=== PATIENT | male | born 1950 | race Caucasian/White ===

== ENCOUNTER 2021-07-30 11:05 | Inpatient (IN) | payer OTHER ==
[~2021-07-30] VITALS: Ht 180.3 cm; Wt 120.3 kg
[~2021-07-30 11:05] MED LIST: ALBU.083IS IH; ALPR1 PO; ASPI325 PO; AZIT250 PO; CLOP75 PO; ESOM20 PO; INS70/30I SC; PROCODE120 PO; SIMV10 PO; SITA50T2 PO; TELM20 PO; VICTOSA
[2021-07-30 11:55] LABS: BASOPHILS ABSOLUTE AUTO 0.05 K/mm3 (0.00-0.23); BASOPHILS PERCENT AUTO 0 % (0-2); EOSINOPHILS ABSOLUTE AUTO 0.01 K/mm3 (0.00-0.68); EOSINOPHILS PERCENT AUTO 0 % (0-6); Hematocrit 35.8 % (37.0-53.0); Hemoglobin 11.7 g/dL (13.5-17.5); IMMATURE GRAN ABSOLUTE AUTO 0.35 K/mm3 (0.00-0.10); IMMATURE GRAN PERCENT AUTO 2 % (0-1); LYMPHOCYTES ABSOLUTE AUTO 0.97 K/mm3 (0.84-5.20); LYMPHOCYTES PERCENT AUTO 5 % (21-46); MONOCYTES ABSOLUTE AUTO 0.94 K/mm3 (0.16-1.47); MONOCYTES PERCENT AUTO 5 % (4-13); Mean Corpuscular HGB 30.1 pg (26.0-34.0); Mean Corpuscular HGB Conc 32.7 g/dL (31.5-36.5); Mean Corpuscular Volume 92 fL (80-100); Mean Platelet Volume 9.5 fL (9.1-12.4); NEUTROPHILS ABSOLUTE AUTO 16.19 K/mm3 (1.96-9.15); NEUTROPHILS PERCENT AUTO 87 % (41-73); Platelet Count 426 K/mm3 (150-400); RDW Standard Deviation 47.4 fL (35.1-46.3); Red Blood Cell Count 3.89 M/mm3 (4.30-5.90); White Blood Cell Count 18.51 K/mm3 (4.00-11.30)
[2021-07-30 12:07] LABS: Alanine Aminotransfer (ALT/SGP 14 U/L (12-78); Albumin, Blood 1.5 g/dL (3.4-5.0); Albumin/Globulin Ratio 0.2 (0.8-1.8); Alk Phos 119 U/L (50-136); Anion Gap 8 mmol/L (6-16); Aspartate Aminotrans (AST/SGOT 26 U/L (12-37); Bilirubin, Total 0.9 mg/dL (0.1-1.0); Blood Urea Nitrogen 14 mg/dL (8-24); Bun/Creatinine Ratio 27.8 (12.0-20.0); CO2, Blood 29 mmol/L (21-32); Calcium, Blood 8.9 mg/dL (8.5-10.1); Chloride, Blood 92 mmol/L (98-108); Globulin, Blood 6.1 g/dL (2.2-4.0); Glomerular Filtration Rate >60 (60-); Glucose, Blood 66 mg/dL (70-99); Potassium, Blood 3.6 mmol/L (3.5-5.5); Sodium, Blood 129 mmol/L (136-145); Total Protein, Blood 7.6 g/dL (6.4-8.2)
[2021-07-30 15:16] LABS: Influenza A, PCR NEGATIVE (NEGATIVE); Influenza B, PCR NEGATIVE (NEGATIVE); Resp Syncytial Virus, PCR NEGATIVE (NEGATIVE); SARS-Cov-2 (COVID-19) PCR, MMC NEGATIVE (NEGATIVE)
--- NOTE | 2021-07-30 18:07 | NUR ---
PT WAS BROUGHT INTO THE OPERATING ROOM AND TRANSFERED OVER TO THE OR TABLE. HOOKED UP TO MONITORS, INDUCED AND INTUBATED BY DR. BOTELLO. SHORTLY AFTER PT BECAME BRADYCARDIC AND CYANOTIC, WITH NO PULSE. CHEST COMPRESSION WERE PERFORMED FOR ABOUT 2 MIN AND PT REGAINED STABLE HEART RATE, PRESSURE, AND OXYGENATION, WITH MEDICATION AND CPR. SURGERY WAS STARTED TO REMOVE INFECTED LIMB. REPORT GIVEN TO NURSING CHIEF LEARNING OFFICER AND ICU CHARGE NURSE.
--- NOTE | 2021-07-30 19:06 | NUR ---
PT ARRIVAL PT BROUGHT FROM OR BY DR BOTELLO AND POINT OF SALE ASSOCIATE. PT REMAINS INTUBATED WITH VENT SETTINGS 14/550/5/40%. STAFF REPORTS BEFORE OPERATION PT'S HR DROPPED AND NO PULSE WAS PRESENT, CPR WAS INITIATED FOR APPROX 3MIN BEFORE PULSE WAS REGAINED. LEVOPHED WAS ORDERED BUT NOT STARTED DUE TO BP RISING. UPON ARRIVAL PT'S SBP 120S, THEN DROPPED SBP IN 60S. LEVOPHED STARTED AT 10MCG/MIN. DR VASQUEZ AT BEDSIDE, PLACED KERLIX ON R FOOT WOUND. PHOTO TAKEN AND PLACED IN CHART. SPOUSE, SISTER IN LAW, AND SON AT BEDSIDE. UPDATED ON PT'S CONDITION.
[2021-07-31] MEDS ORDERED: LEVEMIR FL100 UNIT/2 SC (01:12)
[2021-07-31] MEDS ORDERED: THERA-D2000 UNIT PO (01:13)
[2021-07-31] MEDS ORDERED: JARDIANCE25 MG PO (01:14)
[2021-07-31] MEDS ORDERED: FAMO40 PO (01:15)
[2021-07-31] MEDS ORDERED: FURO40 PO (01:16)
[2021-07-31] MEDS ORDERED: LOSA50 PO (01:17)
[2021-07-31] MEDS ORDERED: METO25 PO (01:18)
[2021-07-31] MEDS ORDERED: NOVOLOG FL100 UNIT/3 SC ×3 (01:21→01:23)
[2021-07-31 01:36] LABS: Source, Urine Catheter
[2021-07-31 01:38] LABS: Bilirubin, Urine Neg (Neg); Blood, Urine 2+ (Neg); Glucose Qualitative, Urine 4+ (Neg); Ketones, Urine 4+ (Neg); Leukocyte Esterase, Urine Neg (Neg); Nitrite, Urine Neg (Neg); Protein, Urine 1+ (Neg); Specific Gravity, Urine 1.025 (1.003-1.022); Urobilinogen, Urine 2+ (Normal)
[2021-07-31 02:28] LABS: Appearance, Urine Clear (Clear); Bacteria Not Seen /hpf; Color, Urine Yellow (P-Yellow); Squamous Epithelial Cells Rare /hpf (Few); White Blood Cells, Urine Not Seen /hpf (0-5)
[2021-07-31 04:30] LABS: BASOPHILS ABSOLUTE AUTO 0.03 K/mm3 (0.00-0.23); BASOPHILS PERCENT AUTO 0 % (0-2); EOSINOPHILS PERCENT AUTO 0 % (0-6); Hematocrit 33.4 % (37.0-53.0); IMMATURE GRAN ABSOLUTE AUTO 0.45 K/mm3 (0.00-0.10); IMMATURE GRAN PERCENT AUTO 3 % (0-1); LYMPHOCYTES ABSOLUTE AUTO 0.68 K/mm3 (0.84-5.20); LYMPHOCYTES PERCENT AUTO 5 % (21-46); MONOCYTES ABSOLUTE AUTO 0.44 K/mm3 (0.16-1.47); MONOCYTES PERCENT AUTO 3 % (4-13); Mean Corpuscular HGB 30.1 pg (26.0-34.0); Mean Corpuscular HGB Conc 32.9 g/dL (31.5-36.5); Mean Corpuscular Volume 92 fL (80-100); Mean Platelet Volume 9.6 fL (9.1-12.4); NEUTROPHILS ABSOLUTE AUTO 13.11 K/mm3 (1.96-9.15); NEUTROPHILS PERCENT AUTO 89 % (41-73); Platelet Count 469 K/mm3 (150-400); RDW Coefficient Variation 14.1 % (11.7-14.2); RDW Standard Deviation 47.4 fL (35.1-46.3); Red Blood Cell Count 3.65 M/mm3 (4.30-5.90); White Blood Cell Count 14.71 K/mm3 (4.00-11.30)
[2021-07-31 04:38] LABS: Alanine Aminotransfer (ALT/SGP 35 U/L (12-78); Albumin, Blood 1.3 g/dL (3.4-5.0); Albumin/Globulin Ratio 0.2 (0.8-1.8); Alk Phos 112 U/L (50-136); Anion Gap 13 mmol/L (6-16); Aspartate Aminotrans (AST/SGOT 109 U/L (12-37); Bilirubin, Total 0.8 mg/dL (0.1-1.0); Blood Urea Nitrogen 16 mg/dL (8-24); Bun/Creatinine Ratio 31.3 (12.0-20.0); CO2, Blood 23 mmol/L (21-32); Calcium, Blood 8.8 mg/dL (8.5-10.1); Chloride, Blood 94 mmol/L (98-108); Creatinine, Blood 0.51 mg/dL (0.60-1.20); Globulin, Blood 5.6 g/dL (2.2-4.0); Glomerular Filtration Rate >60 (60-); Glucose, Blood 206 mg/dL (70-99); Potassium, Blood 4.2 mmol/L (3.5-5.5); Sodium, Blood 130 mmol/L (136-145); Total Protein, Blood 6.9 g/dL (6.4-8.2)
[2021-07-31 04:55] LABS: International Normalized Ratio 1.59; Prothrombin Time Results 16.2 Sec (9.7-11.5)
[2021-07-31] MEDS ORDERED: DOCU100 PO (05:50)
[2021-07-31] MEDS ORDERED: TAMS.4ER PO (05:50)
--- NOTE | 2021-07-31 06:12 | NUR ---
SHIFT SUMMARY PT REMAINS INTUBATED WITH VENT SETTINGS 14/550/5/40%. PT RECEIVING PROPOFOL 35MCG/KG/MIN, LEVOPHED 5MCG/MIN. PT OPENS EYES DURING CARE AND PAINFUL STIMULI. WILL OPEN EYES OCCASIONALLY TO VERBAL STIMULI. DURING REPOSITIONING PT MOVES UPPER EXTREMITIES AND PULLS AGAINST RESTRAINTS AND MOVES R LOWER EXTREMITY. OGT IN PLACE, NO GASTRIC CONTENTS, CLAMPED. URINE IS TEA COLORED. R FOOT HAS KERLIX DRESSING APPLIED BY DR VASQUEZ. L AKA HAS RUBBER GOODS FINISHER SOCK IN PLACE, NO SIGNS OF BLEEDING THROUGH DRESSING. WILI DRAIN IN PLACE DRAINING SANGUANOUS FLUID, OUTPUT OF 45ML THIS SHIFT. WILL REPORT TO ONCOMING RN.
--- NOTE | 2021-07-31 10:12 | NUR ---
EXTUBATE PROPOFOL TURNED OFF AT [address] MICHAELS SWITCHED PT TO SPONTANEOUS FOR SBT. RT NOTIFIED. AFTER ABOUT 15 MINUTES PT STARTED TO WAKE UP AND WAS QUITE AGITATED, THRASHING HIS HEAD BACK AND FORTH. ONCE ABLE TO CALM HIM A LITTLE HE OPENED HIS EYES AND FOLLOWED COMMANDS. DR. MICHAELS EVALUATED HIM AT THE BEDSIDE AND GAVE OK TO EXTUBATE. RT EXTUBATED AT 1000, PLACED ON 4L/NC, RESTRAINTS REMOVED. PT IS STILL GROGGY, 94% ON 4L/NC, MUMBLING A LITTLE BIT. CONTINUING TO MONITOR. LOTS OF REORIENTATION BEING PROVIDED.
--- NOTE | 2021-07-31 12:45 | NUR ---
REASSESSMENT PT HAS BEEN DOING WELL SINCE EXTUBATION, BUT DOES APPEAR A LITTLE CONFUSED. HE IS ORIENTED TO HIMSELF AND DATE, BUT CONFUSED ABOUT PLACE. HE IS TALKING A LOT ABOUT GOD AND GOING TO SEE HIM. WHEN ASKED WHERE HE IS HE ANSWERS "[place]." CONTINUING TO PROVIDE REORIENTATION. HIS LUNGS ARE CLEAR, SR. BP STILL REQUIRING LOW DOSE LEVOPHED TO MAINTAIN MAP ABOVE 60. MULTIPLE ATTEMPTS MADE TO TURN IT OFF THIS MORNING AND BP DROPS EACH TIME. BOLUS GIVEN PER DR. MOSELEY THIS MORNING. DR. SANCHEZ CAME AND ASSESSED FOOT WOUND AND REDRESSED IT. NO NEW ORDERS FROM HIM. JOSE DRAINING CL YELLOW URINE. CONTINUING TO MONITOR.
--- NOTE | 2021-07-31 16:49 | NUR ---
SHIFT SUMMARY PT WAS EXTUBATED THIS MORNING AND HAS DONE WELL SINCE. HE IS CURRENTLY ON 2L/NC. HE IS SR, STILL ON THE LEVOPHED AT 2MCG/MIN. MULTIPLE ATTEMPTS MADE TO TURN IT OFF THROUGHOUT THE DAY BUT EACH TIME SBP DROPS TO THE LOW 70S AND MAP DROPS TO THE 50S. PT PASSED NURSE SWALLOW EVAL SO HE IS DRINKING WATER AT THIS TIME AND ADA DIET ORDERED FOR TONIGHT. JOSE DRAINING CL YELLOW URINE. PT'S MENTATION HAS IMPROVED THROUGOUT THE DAY BUT HE IS STILL SLIGHTLY CONFUSED, THINKING ALL THE STAFF IS CONTRACTED BY THE [employer] DESPITE MULTIPLE DISCUSSIONS ABOUT IT. PT'S VISITED PT AND WAS UPDATED BY NURSING STAFF. CONTINUING TO MONITOR.
--- NOTE | 2021-07-31 22:33 | NUR ---
ASSUMED PT CARE AT 1915 PT SLEEPING, BUT EASILY AROUSABLE TO VERBAL STIMULI. ALERT AND ORIENTED, BUT FORGETFUL AT TIMES. PT C/O 8/10 PAIN TO L AKA SITE; MEDICATED WITH DILAUDID PER ORDERS, WHICH WAS EFFECTIVE. L AKA SITE HAS GROUND CREWMAN SOCK IN PLACE WITH WILI DRAIN DRAINING SANGUINEOUS DRAINAGE. DRESSING TO RIGHT FOOT CHANGED WITH SILVADENE CREAM PER ORDERS; PT TOLERATED WELL. PT DID NOT TOLERATE POSITION CHANGES AND REQUESTED TO NOT BE TURNED AGAIN; WILL CONTINUE TO REINFORCE AND MEDICATE PRIOR INDICATED. LOW DOSE LEVOPHED INFUSING AT 2MCG/MIN VIA L AC PERIPHERAL IV; HOWEVER, IV SITE WAS LEAKING WITH NO BLOOD RETURN. REMOVED IV AND STARTED ANOTHER 20G TO LEFT UPPER ARM; HOWEVER, LEFT LEVOPHED OFF AT THIS TIME AND WILL CONTINUE TO REASSESS BP'S. NS INFUSING AT 100ML/HR VIA 18G TO RIGHT HAND. NSR WITH FREQUENT PVC'S AND RATE IN THE 90'S. PT IS ON 2L OF OXYGEN VIA NC WITH SPO2>90%. SEE SHIFT SUMMARY FOR FURTHER DETAILS.
[2021-08-01 04:15] LABS: BASOPHILS ABSOLUTE AUTO 0.02 K/mm3 (0.00-0.23); BASOPHILS PERCENT AUTO 0 % (0-2); EOSINOPHILS PERCENT AUTO 0 % (0-6); Hematocrit 30.9 % (37.0-53.0); Hemoglobin 9.9 g/dL (13.5-17.5); IMMATURE GRAN ABSOLUTE AUTO 0.26 K/mm3 (0.00-0.10); IMMATURE GRAN PERCENT AUTO 2 % (0-1); LYMPHOCYTES ABSOLUTE AUTO 1.33 K/mm3 (0.84-5.20); LYMPHOCYTES PERCENT AUTO 13 % (21-46); MONOCYTES ABSOLUTE AUTO 0.73 K/mm3 (0.16-1.47); MONOCYTES PERCENT AUTO 7 % (4-13); Mean Corpuscular Volume 94 fL (80-100); Mean Platelet Volume 9.3 fL (9.1-12.4); NEUTROPHILS ABSOLUTE AUTO 8.31 K/mm3 (1.96-9.15); NEUTROPHILS PERCENT AUTO 78 % (41-73); Platelet Count 370 K/mm3 (150-400); RDW Coefficient Variation 14.4 % (11.7-14.2); RDW Standard Deviation 48.8 fL (35.1-46.3); White Blood Cell Count 10.65 K/mm3 (4.00-11.30)
[2021-08-01 04:42] LABS: Alanine Aminotransfer (ALT/SGP 21 U/L (12-78); Albumin, Blood 1.2 g/dL (3.4-5.0); Albumin/Globulin Ratio 0.2 (0.8-1.8); Alk Phos 91 U/L (50-136); Anion Gap 6 mmol/L (6-16); Aspartate Aminotrans (AST/SGOT 48 U/L (12-37); Bilirubin, Total 0.4 mg/dL (0.1-1.0); Blood Urea Nitrogen 14 mg/dL (8-24); Bun/Creatinine Ratio 29.4 (12.0-20.0); CO2, Blood 29 mmol/L (21-32); Calcium, Blood 8.6 mg/dL (8.5-10.1); Chloride, Blood 100 mmol/L (98-108); Creatinine, Blood 0.48 mg/dL (0.60-1.20); Globulin, Blood 5.2 g/dL (2.2-4.0); Glomerular Filtration Rate >60 (60-); Glucose, Blood 174 mg/dL (70-99); Potassium, Blood 3.8 mmol/L (3.5-5.5); Sodium, Blood 135 mmol/L (136-145); Total Protein, Blood 6.4 g/dL (6.4-8.2)
--- NOTE | 2021-08-01 05:20 | NUR ---
END OF SHIFT SUMMARY NO SIGNIFICANT CHANGES T/O SHIFT. PT MEDICATED WITH PRN DILAUDID 0.5MG X3 THIS SHIFT WITH GOOD EFFECT. PT DIDN'T TOLERATE POSITION CHANGES WELL D/T PAIN DESPITE PRIOR ANALGESIA ADMINISTRATION. CERTIFIED PROFESSIONAL CONTROLLER SOCK REMAINS IN PLACE TO L RIA SITE. LEVOPHED HAS REMAINED OFF SINCE 2200 THIS SHIFT WITH LOW BP DROPS AFTER ADMINISTRATION OF DILAUDID; HOWEVER, MAP REMAINS AROUND 60 DURING THESE EPISODES. PT REMAINS ALERT AND ORIENTED WITH SOME CONFUSION/FORGETFULNESS. AT ONE POINT PT BELIEVED HE WAS IN [place], BUT CONFUSION APPEARS TO ALSO BE AFTER ADMINISTRATION OF NARCOTICS. NS CONTINUES AT 100ML/HR VIA 20G TO LEFT UPPER ARM. DRESSING TO RIGHT FOOT REMAINS DRY AND INTACT. JOSE CATHETER PATENT AND DRAINING DARK YELLOW URINE TO GRAVITY. WILL CONTINUE TO MONITOR UNTIL REPORT IS HANDED OFF TO ONCOMING RN.
--- NOTE | 2021-08-01 10:40 | NUR ---
PT TO ADULT EDUCATION TEACHER
--- NOTE | 2021-08-01 15:19 | NUR ---
PT BACK FROM SHIFT MGR. ALERT, BUT SLIGHTLY CONFUSED. HE KEEPS ASKING THE STAFF TO "LET ME GO" OR "LET ME OUT." REORIENTATION FREQUENTLY PROVIDED. L GROIN SITE IS C/D/I, SOFT. L RADIAL SITE IS C/D/I, SOFT. R PEDAL SITE IS C/D/I, NO HEMATOMA. PT'S INFORMED THAT HE IS BACK FROM SHIFT MGR AND CAN VISIT. CONTINUE TO MONITOR.
--- NOTE | 2021-08-01 17:10 | NUR ---
SHIFT SUMMARY PT WENT TO [facility] TODAY FOR PERIPHERAL REVASCULARIZATION AND HAS BEEN A LITTLE CONFUSED SINCE HE CAME BACK. HE IS ORIENTED TO SELF, FAMILY AND SURROUNDINGS, BUT KEEPS TRYING TO PULL HIMSELF UP DESPITE REDIRECTIONS. PT'S AT THE BEDSIDE CURRENTLY AND IS HELPING KEEPING HIM LYING DOWN AND RELAXED. AT THIS POINT ALL HIS SITES ARE C/D/I, AND WITHOUT SIGNS OF HEMATOMA. AIR SLOWLY BEING RELEASED FROM TR BAND AND IS STABLE SO FAR. DR. VASQUEZ CAME BY AND CHANGED DRESSING ON L STUMP WELL PULLED THE WILI DRAIN. PT'S HAD QUESTIONS ABOUT WOUND ON PT'S R FOOT AND DR. VASQUEZ SHOWED HER THE WOUNDS AND DISCUSSED THE LIKELIHOOD THAT PART OF HIS FOOT WILL NEED TO BE AMPUTATED. PT'S WAS RESISTANT TO THE IDEA AND DR. VASQUEZ EXPLAINED THE REASONING BEHIND IT AND THE PURPOSE OF THE REVASCULARIZATION TO TRY AND SAVE MUCH OF THE FOOT POSSIBLE.
--- NOTE | 2021-08-01 18:33 | NUR ---
TR BAND REMOVED WITHOUT ANY COMPLICATIONS AND TEGADERM PLACED OVER RADIAL SITE. PT INSTRUCTED ON ACTIVITY RESTRICTIONS REGARDING L WRIST. CONTINUE TO REINFORCE. L FEMORAL SITE HAS A DIME SIZE AMT OF OOZING BUT REMAINS SOFT AND WITHOUT SIGNS OF HEMATOMA.
--- NOTE | 2021-08-01 22:17 | NUR ---
ASSUMED CARE/TRANSFER TO 212 PT LAYING DOWN IN BED SLEEPING. PT IS DROWSY BUT WAKES TO VERBAL STIMULI; PT SLEEPS WHEN NOT STIMULATED. SPO2 >98% ON 2L NC. HR 90-100 WITH SEVERAL PVC'S. SBP 90'S. MAP >65. JOSE IN PLACE AND DRAINING TO GAVITY. DRESSING TO LLE C/D/I. DRESSING TO RT FOOT C/D/I. LT GROIN SITE SHOWING SOME DRIED OOZING UNDER CHG DRESSING, SITE SOFT. LT RADIAL SITE SHOWING SOME DRIED OOZING UNDER TRANSPARENT DRESSING. PT C/O PAIN TO HIPS AND LLE BUT STATES "PAIN TOLERABLE". SEE SHIFT ASSESSMENT FOR FULL ASSESSMENT. REPORT GIVEN TO KNURLING MACHINE TENDER ROCIO AT 2139. PT LEFT ICU AT 2150 IN ICU BED. ALL MEDS AND BELONGINGS SENT WITH PATIENT.
--- NOTE | 2021-08-01 22:59 | NUR ---
PT ARRIVED FROM ICU IN ROOM 212 AT 2200. HE CAME BY BED AND WAS ASSISTED WITH TRANSFERRING TO HIS NEW BED. HE ALERT, SLEEPY AND EASY TO WAKE UP. HE ANSWERS QUESTIONS APPROPRIATELY. C/O PAIN AND NAUSEA AND MEDICATED PRN ACCORDINGLY. HIS ASSESSMENT PERFORMED. PT IS A FRESH L AKA. AMPUTATED SITE IS DRESSED, DRESSING LOOKS INTACT ON ASSESSMENT. PT ALSO HAS WOUNDS ON HIS LEFT WRIST, LEFT GROIN, AND RIGHT FOOT. ALL WOUNDS ARE DRESSED AND DRESSINGS ARE INTACT. SKIN ON COCCYX AND BACK IS INTACT. PT WAS GIVEN HIS CALL LIGHT AND WAS ENCOURAGED TO CALL FOR HELP WHEN ASSISTANCE IS NEEDED HE IS MONITORED.
[2021-08-02 04:27] LABS: BASOPHILS ABSOLUTE AUTO 0.03 K/mm3 (0.00-0.23); BASOPHILS PERCENT AUTO 0 % (0-2); EOSINOPHILS ABSOLUTE AUTO 0.05 K/mm3 (0.00-0.68); EOSINOPHILS PERCENT AUTO 1 % (0-6); Hematocrit 31.6 % (37.0-53.0); Hemoglobin 9.9 g/dL (13.5-17.5); IMMATURE GRAN ABSOLUTE AUTO 0.37 K/mm3 (0.00-0.10); IMMATURE GRAN PERCENT AUTO 5 % (0-1); LYMPHOCYTES ABSOLUTE AUTO 1.49 K/mm3 (0.84-5.20); LYMPHOCYTES PERCENT AUTO 19 % (21-46); MONOCYTES ABSOLUTE AUTO 0.77 K/mm3 (0.16-1.47); MONOCYTES PERCENT AUTO 10 % (4-13); Mean Corpuscular HGB 29.9 pg (26.0-34.0); Mean Corpuscular HGB Conc 31.3 g/dL (31.5-36.5); Mean Corpuscular Volume 96 fL (80-100); Mean Platelet Volume 9.4 fL (9.1-12.4); NEUTROPHILS ABSOLUTE AUTO 5.36 K/mm3 (1.96-9.15); NEUTROPHILS PERCENT AUTO 66 % (41-73); Platelet Count 325 K/mm3 (150-400); RDW Coefficient Variation 14.5 % (11.7-14.2); RDW Standard Deviation 50.7 fL (35.1-46.3); Red Blood Cell Count 3.31 M/mm3 (4.30-5.90); White Blood Cell Count 8.07 K/mm3 (4.00-11.30)
[2021-08-02 05:15] LABS: Anion Gap 4 mmol/L (6-16); Blood Urea Nitrogen 18 mg/dL (8-24); Bun/Creatinine Ratio 35.7 (12.0-20.0); CO2, Blood 30 mmol/L (21-32); Chloride, Blood 101 mmol/L (98-108); Glomerular Filtration Rate >60 (60-); Glucose, Blood 124 mg/dL (70-99); Potassium, Blood 3.9 mmol/L (3.5-5.5); Sodium, Blood 135 mmol/L (136-145)
--- NOTE | 2021-08-02 05:15 | NUR ---
PT IS EXPERIENCING A NAGGING WET AND NON-PRODUCTIVE COUGH. IS ALSO EXPERIENCING SINUS TACH WITH PVC. DR JULIÁN LLOYD WAS CALLED AND WAS NOTIIFIED ON PT CONDITION. THE DOCTOR GAVE TELEPHONE ORDER OF ROBITUSSIN COUGH SYRUP AND PORTABLE CHEST XRAY FOR THE COUGH. SHE IS NOT ADDRSSING THE HEART ISSUE AT THE MOMENT. SHE SAID TO CONTINUE TO MONITOR PATIENT'S HEART ACTIVITY AND UPDATE HER WITH SIGNIFICANT CHANGE. ORDER FOR COUGH MEDICINE AND CXR WERE NOTED.
--- NOTE | 2021-08-02 11:13 | NUR ---
Echocardiogram completed.
--- NOTE | 2021-08-02 18:12 | NUR ---
SHIFT SUMMARY PT IS HAS BEEN ALERT, BUT DROWSY THROUGH OUT THE DAY, ORIENTEDx4. AT TIMES PT HAS STATED HE WANTED TO LEAVE THE HOSPITAL. INSTRUCTED PT ON IMPORTANCE OF MAINTAINING CARE/PAIN CONTROL AND FUTURE POTENTIAL SURGICAL INTERVENTIONS. PT CONTINOUSLY REPORTS PAIN 10/10 WITH PRN PAIN MEDICATIONS AND WHEN RN ROUNDS ON PT, PT IS DROWSY MOST OF THE TIME. RIGHT FOOT WOUND DRESSING CHANGED THIS MORNING AND AFTER ORTHO MD ROUNDED. VITALS HAVE BEEN STABLE. TELEMETERY REPORTS PT TO BE SINUS RHTYHM WITH PVC'S.
--- NOTE | 2021-08-03 05:20 | NUR ---
SHIFT SUMMARY S/P L AKA, WOUND ON RLE DRESSING CHANGED THIS SHIFT, IV ACCESS LOST, POWERGLIDE ESTABLISHED FOR ONGOING IV ABX THERAPY, PT A LITTLE RESTLESS WITH TRYING TO GET COMFORTABLE SO TRIED MULTIPLE REPOSITIONING WITH LIMITED SUCCESS. PT REPORTS HIGH LEVEL PAIN BUT FACE/FLACC SCALE GETS A LOWER SCORE. GENERALIZED EDEMA PRESENT, MORE SO IN RUE DUE TO IV ACCESS INFILTATION WHICH WAS REMOVED WHEN POWERGLIDE WAS PLACED. NO OTHER EVENTS THIS SHIFT. CALL LIGHT IN REACH, WILL CTM AND REPORT TO DAY RN.
--- NOTE | 2021-08-03 16:13 | NUR ---
SHIFT SUMMARY: POD 4 LEFT ABOVE KNEE AMP PATIENT IS ALERT AND ORIENTED X4. VS ARE WNL AND IS ON RA. PAIN IS MANAGED WITH IV DILAUDID. THE LEFT STUMP HAS A SOCK THAT IS C/D/I. HIS RIGHT FOOT HAS NONADHESIVE BANDAGE WITH KERLEX THAT IS C/D/I. PATIENT REPORTS NOT HAVING ANY SENSATION IN EITHER LEG THAT THE PAIN IS MAINLY IN HIS HIPS. DR. GALVAN PUT IN NEW PAIN MED ORDERS WHICH HAVE SINCE HELPED. PATIENT REPORTS WANTING TO HAVE THE VASCULAR SUGERY DONE LONG "MY PAIN IS COVERED". CALLS APPROPRIATELY. CALL LIGHT WITHIN REACH.
--- NOTE | 2021-08-03 16:33 | NUR ---
Spoke with Primary RN Debbie and discussed case prior to visiting with Pt. Pt has been intermittently apprehensive with wether or not to F/U with revascularization but ultimately decided to procede with procedure. Pt's pain medication has been increased and appears to managing Pt pain at this time. Made brief supportive visit this afternoon. Pt resting in bed upon arrival. Pt appears calm and comfortable. Offered therapeutic listening as Pt reports being and having 4 children. He reports 2 daughters and 1 son are currently in [place]. Pt's other son lives with him and his . He reports son will be able to provide assistance with any care needs. Continued therapeutic listening. Ended visit to allow Pt to rest. Palliative Care will remain available.
--- NOTE | 2021-08-04 06:09 | NUR ---
PT IS A/OX2-3 WITH MOMENTS OF CONFUSION. OFTEN MUMBLES. AT 2210 LAST NIGHT PT WAS UPSET/AGITATED & THREW ITEMS (PLASTIC WATER JUG, FOOD, SILVERWARE) OFF OF HIS BEDSIDE TABLE AGAINST THE WALL. HAS WET SOUNDING NON-PRODUCTIVE COUGH. HAS I/S AT BEDSIDE BUT REFUSES TO USE IT. EXP WHEEZES NOTED. ROOM AIR. JOSE INTACT & TO GRAVITY, DRAINING DARK YELLOW URINE. JOSE DRNG BAG OFF FLOOR. LLE STUMP SOCK IN PLACE AND IS CDI. PLANTAR SURFACE TO RT FOOT/TOES GANGRENOUS, SLOUGHY TISSUE W/FOUL ODOR. DRSG TO RT FOOT CHANGED. BUE EDEMATOUS & ELEVATED ON PILLOWS FOR COMFORT. MEDICATED FOR PAIN W/PRN MEDS PER EMAR. PT REMINDED NOT TO PULL OUT HIS RUE POWERGLIDE, HE GAVE VERBAL UNDERSTANDING.
[2021-08-04 08:27] LABS: Hematocrit 32.3 % (37.0-53.0); Hemoglobin 10.4 g/dL (13.5-17.5); Mean Corpuscular HGB 30.3 pg (26.0-34.0); Mean Corpuscular HGB Conc 32.2 g/dL (31.5-36.5); Mean Corpuscular Volume 94 fL (80-100); Mean Platelet Volume 9.8 fL (9.1-12.4); Platelet Count 325 K/mm3 (150-400); RDW Coefficient Variation 14.6 % (11.7-14.2); RDW Standard Deviation 49.8 fL (35.1-46.3); Red Blood Cell Count 3.43 M/mm3 (4.30-5.90); White Blood Cell Count 7.91 K/mm3 (4.00-11.30)
[2021-08-04 08:35] LABS: Anion Gap 4 mmol/L (6-16); Blood Urea Nitrogen 11 mg/dL (8-24); Bun/Creatinine Ratio 22.9 (12.0-20.0); CO2, Blood 30 mmol/L (21-32); Chloride, Blood 101 mmol/L (98-108); Creatinine, Blood 0.48 mg/dL (0.60-1.20); Glomerular Filtration Rate >60 (60-); Glucose, Blood 74 mg/dL (70-99); Potassium, Blood 4.1 mmol/L (3.5-5.5); Sodium, Blood 135 mmol/L (136-145)
--- NOTE | 2021-08-04 13:22 | NUR ---
PATIENT ALERT AND ORIENTED X4. AT TIMES SAYS CONFUSING STATEMENTS. ABLE TO MOVE ALL EXTREMITTIES IN BED. PERRLA. BILATERAL SPECIAL EVENTS FUNDRAISER STRENGTH. DENIES CHEST PAIN/PRESSURE. VITAL SIGNS STABLE. RADIAL PULSES STRONG. RIGHT PEDAL PULSE VERY FAINT. ON ROOM AIR, LUNGS SOUNDING CLEAR AND DIM. SATING MID 90'S. DENIES SOB. OCCASIONAL WET COUGH. JOSE CATH IN PLACE DRAINING SISI URINE TO GRAVITY. DENIES ABDOMINAL PAIN/NAUSEA. MEPILEX PLACED ON COCCYX FOR PREVENTION. JOY POWERGLIDE WITH NS AT 100ML/HR INFUSING. ANTIBIOTICS INFUSED. PATIENT EATING WELL AND ABLE TO TAKE PILLS WHOLE WITH WATER. Q2 TURNING PATIENT ALLOWS. RIGHT LOWER LEG DIABETIC ULCER/BURN. DRESSING CHANGED AND DR. SANCHEZ IN TO SEE PATIENT. PLAN FOR REVASC ON SUNDAY WITH DR. COTTON. LEFT AKA DRESSING CHANGED. DR. VASQUEZ IN TO HELP WITH DRESSING CHANGE. DRESSING ORDER UNDER NURSE NOTIFY. CHANGED TODAY AND WILL NEED TO BE CHANGED EVERY 2 DAYS. PATIENT COMPLAINS OF PAIN IN BOTH LEGS, HIPS, AND BACK. MEDICATED PER EMAR. CALL LIGHT IN REACH. WILL CONTINUE TO MONITOR.
--- NOTE | 2021-08-04 15:28 | NUR ---
PATIENT SLEEPING HARD THIS AFTERNOON. IN TO VISIT. VITAL SIGNS STABLE AT THIS TIME. ANTIBIOTICS INFUSING. WILL CONTINUE TO MONITOR.
--- NOTE | 2021-08-04 17:44 | NUR ---
SHIFT SUMMARY: NO ACUTE CHANGES. IN TO VISIT PATIENT AT BEDSIDE. VITAL SIGNS REMAIN STABLE. ON ROOM AIR. DENIES PAIN AT THIS TIME. Q2 TURNING AND NEEDED. PATIENT HAS POOR APPETITE. BROUGHT IN SOME SNACKS AND PATIENT EATING THEM MORE SO THAN HOSPITAL FOOD. HEEL REMAINS FLOATED OFF OF BED. WILL REPORT OFF TO ONCOMING RN.
--- NOTE | 2021-08-05 06:25 | NUR ---
PT IS A/OX2-3, W/MOMENTS OF CONFUSION AND FORGETFULLNESS. ABLE TO MAKE HIS NEEDS NKOWN. NO EVENTS OVER NIGHT. ROOM AIR. EXP WHEEZING NOTED. CONTINUES WITH NONPRODUCTIVE COUGH. REFUSED PRN COUGH SYRUP. I/S AT BEDSIDE, REFUSED TO USE IT OR RETURN DEMO. JOSE CATHETER PATENT W/DARK YELLOW-ORANGE CLOUDY URINE. JOSE SECURED TO RT THIGH & TO GRAVITY, DRNG BAG OFF FLOOR. HAD SOFT/LOOSE BM EARLY AM. DID C/O GAS, GAVE PRN SIMETHICONE. GOOD RESULTS. LT STUMP SOCK CDI. RT FOOT DRSG CHANGED, PT TOLERATED WELL. MEDICATED FOR PAIN W/PRN MEDS PER EMAR.
--- NOTE | 2021-08-05 16:28 | NUR ---
SHIFT SUMMARY: POD 6 LEFT AKA PATIENT IS ALERT AND ORIENTED X3. PATIENT CAN BE MORE CONFUSED AT NIGHT. VS ARE WNL AND ON RA. PAIN IS MANAGED WITH IV DILAUDID AND 2 OXY. LEFT STUMP HAS A STUMP SOCK ON WITH ABD PAD UNDERNEATH THAT ARE C/D/I. THE RIGHT FOOT HAS NONADHERANT DRESSING WITH KERLEX THAT IS C/D/I. HE IS TOLERATING PO INTAKE BUT "DOESN'T LIKE THIS FOOD HERE". ENCOURAGING DIFFERENT KINDS OF FOODS THAT WE HAVE IN THE [place] AND STILL DENIES WANTING ANY OF IT. HIS JOSE IS DRAINING DARK YELLOW URINE PER GRAVITY. IS AT BEDSIDE. CALLS APPROPRIATELY. CALL LIGHT WITHIN REACH. THE PLAN IS FOR THE PATIENT TO HAVE VASCULAR SURGERY DONE ON 08/08/21 ON HIS RIGHT FOOT. AFTER THAT IT WILL DETERMINE WHAT WILL HAPPEN NEXT FOR HIM. UNTIL THEN PAIN MANAGEMENT AND ENCOURAGING PO INTAKE/INSPIRAMETER USE.
--- NOTE | 2021-08-06 06:21 | NUR ---
PT IN BED AT THIS TIME WHERE HE REMAINS MUCH OF THE NIGHT AND IS RESTING COMFORTABLY AND IN STABLE CONDITION. ASSISTED WITH CARE AND ADLS, ASSISTED WITH BATHROOM And TOILETING NEEDS, MEDICATED INDICATED. CALL MAK GIVEN TO HIM AND URGED TO CALL FOR HELP WHEN ASSISTANCE IS NEEDED HE IS MONITORED.
--- NOTE | 2021-08-06 09:00 | NUR ---
DRESSING TO R FOOT CHANGED THIS AM. WOUND CLEASED WITH WOUND HORSE RACE STARTER. NON-ADHERANT PAD APPLIED, 4X4 GAUZE AND KERLEX GAUZE USED OVER WOUND. DRESSING WRAPPED WITH CARRIE WRAP.
--- NOTE | 2021-08-06 18:27 | NUR ---
SHIFT SUMMARY PT REMAINS IN THE HOSPITAL FOR GI CONCERNS AND RLE ULCER. PAIN HAS BEEN MANAGED WITH IV PAIN MEDICATION THIS SHIFT. DIET ADVANCED TO MECHANICAL SOFT THIS EVENING. PT'S ABD REMAINS DISTENDED WITH TYMPANIC BOWEL SOUNDS. PT DOES REPORT PASSING FLATUS AND TOLERATED MECHANICAL SOFT DINNER. PLAN FOR DIALYSIS TOMORROW AND FOR FURTHER FOLLOW-UP WITH ORTHO ON SUNDAY OR POSSIBLY OUTPATIENT. PT HAD 2 RUNS OF VTACH THIS EVENING, HE WAS ASYMPTOMATIC, DR. ANDREW NOTIFIED. VSS. WILL MONITOR UNTIL REPORT TO NOC TATIANA.
--- NOTE | 2021-08-06 19:40 | NUR ---
DRESSING REAPPLIED TO RLE WOUND PT'S REMOVED RLE DRESSING. SHE WAS FOUND IN THE ROOM CLEANING THE WOUND WITH MOUTH MOISTERIZER SPONGE, KERLEX AND WOUND CLEANSER. SHE WAS NOT WEARING GLOVES AND WAS USING SCISSORS TO CUT LOOSE SKIN OFF OF WOUND. SHE WAS INSTRUCTED TO STOP CLEANING THE WOUND AND EDUCATED ABOUT THE RISK OF NOT WASHING HER HANDS, AND NOT WEARING GLOVES. WHILE STAFF WAS AT BEDSIDE EDUCATING PT SHE PICKED UP SOME GAUZE SHE HAD DROPPED ON THE FLOOR AND HELD IT UNDER THE PT'S FOOT WHILE SHE SPRAYED ADDITIONAL WOUND EMT DRIVER ON THE FOOT. PT'S WIPED THE LOWER PORTION OF THE FOOT WITH THE SOILED KERLEX GAUZE BUT DID NOT TOUCH THE WOUND. SOILED KERLEX WAS QUICKLY DISCARDED BY THIS RN. AND FOOT CLEANSED. DRESSING REAPPLIED. PT'S CONTINUED TO ASK IF SHE COULD REMOVE NECTROTIC PORTIONS OF PT'S 2ND TOE. SHE WAS INSTRUCTED THAT THIS WAS UNSAFE AND COULD RESULT IN INTRODUCTION OF INFECTION OR BLEEDING. SHE WAS EDUCATED THAT THE DOCTOR MAY DEBRIDE THE WOUND ON SUNDAY IF HE FEELS IT IS NEEDED. PT'S CONTINUED TO EXPRESS THAT SHE FELT SHE COULD DEBRIDE THE WOUND BUT AGREED TO LEAVE IT ALONE AND NOT REMOVE THE DRESSING OR CONTINUE TO REMOVE SKIN FROM AROUND THE WOUND.
--- NOTE | 2021-08-06 19:44 | NUR ---
SHIFT SUMMARY PT IS POD#7 FROM [facility]. PAIN MANAGED WITH NORCO. PT REMAINS ON BEDREST AT THIS TIME AND REQUIRES ASSISTANCE REPOSITIONING, HE HAS BEEN ASSISTED WITH REPOSITIONING T/O THE DAY. PT IS GETTING IV ABX. VSS. REPORT GIVEN TO JEFRY SIMPSON.
--- NOTE | 2021-08-07 02:58 | NUR ---
PT C/O SUDDEN SOB ANXIETY. ARRIVED AT BEDSIDE AND PT STATING HE IS HAVING A PANIC ATTACK.VSS 02 PLACED AT 2L N/C NEBULIZER WAS GIVEN WHICH PT REPORTED NO IMPROVEMENT.PT C/O MID STERNAL AND EPIGASTRIC PAIN WELL.LOOSE NON PROD COUGH.I CALLED DR GALVAN AND WAS REVIEWING VS AND ABOVE CONCERNS/ASSESSMENT AND ADVISED THAT PRIOR CXR AND ECHO WERE ABNORMAL.DESIZING MACHINE BACK TENDER DIEGO HERNANDEZ STATED PT VERB PLANS TO LEAVE HOSPITAL AMA.PT ALSO C/O NOT SLEEPING DURING HOSPITALIZATION AND RECEIVED MELATONIN EARLY PM.I ADVISED DR GALVAN OF THIS. DR GALVAN ORDERED TRAZADONE X1.
--- NOTE | 2021-08-07 04:30 | NUR ---
PT HAD LEFT FACILITY AFTER TELLING PT SHE WOULD NOT TAKE HIM HOME AMA UNTIL AFTER HE IS SEEN SUNDAY FOR FOLLOW UP.PT FELL ASLEEP AND I HELD TRAZADONE.PT SNORING.
--- NOTE | 2021-08-07 07:38 | NUR ---
PT CONTINUED TO SLEEP.I WOKE PT TO GIVE 0600 MED AND CONFIRM HOW HE WAS FEELING AND PT WAS SLOW TO WAKE REQUIRED BRIEF STERNAL RUB AND LOUD VOICE. PT CONFUSED UPON FIRST AWAKENED.HOWEVER, WAS ABLE TO STATE AND NAME. TALKING OF GOING TO SEE A FRIEND.2 L SATS 99-100% PT SLIGHTLY ASHEN IN COLOR. CONTINUES WITH LOOSE COUGH.UPPER CONGESTED SOUNDING W/A.CBG STABLE. I CALLED DR FLORIAN AND DISCUSSED PREVIOUS EPISODE DURING NIGHT WITH ORDER FOR TRAZADONE RECEIVED AND HELD DUE TO SLEEP.DISCUSSED CURRENT CONCERNS DR FLORIAN PUTTING ORDERS IN AND TO ROOM FOR ASSESSMENT.FURTHER ORDERS GIVEN AT BEDSIDE DAY RN AIME IN ATTENDANCE PROVIDING FURTHER CARE.
[2021-08-07 08:31] LABS: BASOPHILS ABSOLUTE AUTO 0.07 K/mm3 (0.00-0.23); BASOPHILS PERCENT AUTO 1 % (0-2); EOSINOPHILS PERCENT AUTO 2 % (0-6); Hemoglobin 9.9 g/dL (13.5-17.5); IMMATURE GRAN ABSOLUTE AUTO 0.16 K/mm3 (0.00-0.10); IMMATURE GRAN PERCENT AUTO 3 % (0-1); LYMPHOCYTES PERCENT AUTO 30 % (21-46); MONOCYTES ABSOLUTE AUTO 0.61 K/mm3 (0.16-1.47); MONOCYTES PERCENT AUTO 12 % (4-13); Mean Corpuscular HGB 29.9 pg (26.0-34.0); Mean Corpuscular HGB Conc 30.9 g/dL (31.5-36.5); Mean Corpuscular Volume 97 fL (80-100); Mean Platelet Volume 10.1 fL (9.1-12.4); NEUTROPHILS PERCENT AUTO 52 % (41-73); Platelet Count 279 K/mm3 (150-400); RDW Coefficient Variation 15.7 % (11.7-14.2); RDW Standard Deviation 54.6 fL (35.1-46.3); Red Blood Cell Count 3.31 M/mm3 (4.30-5.90); White Blood Cell Count 5.04 K/mm3 (4.00-11.30)
[2021-08-07 08:50] LABS: Alanine Aminotransfer (ALT/SGP 21 U/L (12-78); Albumin, Blood 1.4 g/dL (3.4-5.0); Albumin/Globulin Ratio 0.3 (0.8-1.8); Alk Phos 73 U/L (50-136); Anion Gap 3 mmol/L (6-16); Aspartate Aminotrans (AST/SGOT 37 U/L (12-37); Bilirubin, Total 0.4 mg/dL (0.1-1.0); Blood Urea Nitrogen 14 mg/dL (8-24); CO2, Blood 31 mmol/L (21-32); Calcium, Blood 8.3 mg/dL (8.5-10.1); Chloride, Blood 102 mmol/L (98-108); Creatinine, Blood 0.47 mg/dL (0.60-1.20); Globulin, Blood 4.4 g/dL (2.2-4.0); Glomerular Filtration Rate >60 (60-); Glucose, Blood 122 mg/dL (70-99); Potassium, Blood 3.9 mmol/L (3.5-5.5); Sodium, Blood 136 mmol/L (136-145); Total Protein, Blood 5.8 g/dL (6.4-8.2); Troponin I 0.026 ng/mL (0.000-0.040)
--- NOTE | 2021-08-07 17:30 | NUR ---
PT BECAME AGGITATED THIS EVENING WHEN HIS CAME TO VISIT. PT AND HIS WERE YELLING AT EACH OTHER IN THE ROOM. HE WAS WITNESSED THROWING TUPPERWARE CONTAINERS AT HIS WHEN THIS RN ENTERED THE ROOM. PT AND SPOUSE WERE TOLD THAT BEHAVIOR SUCH THAT WAS NOT APPROPRIATE IN THE HOSPITAL SETTING. HE STARTED EXPRESSING THAT HE WANTED TO LEAVE AMA. PT EDUCATED ABOUT THE RISKS AND TOLD HE COULD LEAVE IF FAMILY WAS WILLING TO TAKE HIM HOME. PT ALSO EDUCATED THAT STAFF WOULD NOT BE ABLE TO ASSIST HIM WITH LEAVING, AND FAMILY WOULD NEED TO DEMONSTRATE THAT THEY COULD SAFELY ASSIST HIM AT HOME. PT'S SON WAS ON THE PHONE AND AFTER HEARING THE RISKS HE DECLINED TO TAKE THE PT HOME. PT'S STILL REPORTED SHE WAS WILLING TO TAKE THE PT HOME. THIS RN OFFERED TO REACH OUT TO THE NURSING PRODUCT CONSULTANT AND TO DR. FLORIAN REGARDING THIS SITUATION. PT'S ALSO STATED THAT THE PT WOULD BE CALMER IF SHE WAS ABLE TO STAY THE NIGHT SINCE HE BECOMES ANXIOUS AND HAS SOME HALLUCINATIONS AT NIGHT. PT APPEARS MORE AGGITATED WHEN PT'S IS AT THE BEDSIDE. DR. FLORIAN SPOKE WITH THE PT REGARDING HIS CONCERNS. AT THIS TIME PT IS MORE CALM AND COOPERATIVE WITH CARE. HE HAS DECLINED TO WEAR HIS DIRECTOR SPECIAL EDUCATION. PT'S LEFT AFTER DR. FLORIAN TALKED WITH HER AND THE PT.
--- NOTE | 2021-08-07 17:40 | NUR ---
PT'S BROUGHT MEDICATIONS FROM HOME TYLENOL 500 FOUND ON THE PT'S BEDSIDE TABLE THIS EVENING. WHEN QUESTIONED ABOUT THAT MEDICATION THE PT DECLINED TAKING ANY TODAY, HE REPORTED TAKING SOME YESTERDAY. PT AND HIS WERE EDUCATED THAT HE IS GETTING NORCO WHICH CONTAINS TYLENOL AND TAKING TO MUCH TYLENOL IN 24 HOURS COULD DAMAGE THE PT'S LIVER. PT'S WAS ASKED TO PUT THE PILL AWAY AND NOT PROVIDE ANY FURTHER MEDICATION WHILE PT IS IN THE HOSPITAL IT COULD CAUSE SIGNIFICANT SAFETY ISSUES. PT AND HIS REPORTED UNDERSTANDING. PT'S ALSO BROUGHT THE PT MELANIE WEIBERTOER THIS AFTERNOON. IT WAS ALSO DISCARDED AND PROTONIX WAS GIVEN FOR GERD. PT EDUCATED TO NOTIFY STAFF IT HE NEEDS MEDICATION INSTEAD OF ASKING FAMILY TO PROVIDE IT.
--- NOTE | 2021-08-07 18:27 | NUR ---
PT REFUSING TO WEAR TELE MONITOR PT DECLINED TO ALLOW STAFF TO PLACE THE TELE MONITOR BACK ON. PT EDUCATED ABOUT THE RISKS OF NOT WEARING THE MONITOR. PT REPORTED HE WAS WILLING TO TAKE THAT RISK. DR. FLORIAN NOTIFIED, SHE GAVE ORDER TO DC TELE.
--- NOTE | 2021-08-07 18:31 | NUR ---
SHIFT SUMMARY PT REMAINS IN THE HOSPITAL FOR IV ABX. PT HAS EXPRESSED THAT HE WANTS TO LEAVE AMA T/O THE DAY (SEE PREVIOUS NOTES). PT HAS BEEN PROVIDED EDUCATION REGARDING HIS CONDITION AND HOW IT COULD BE AFFECTED BY LEAVING AMA. PT WAS CONFUSED AND OBTUNDED THIS MORNING BUT LOC IMPROVED AND PT BECAME ALERT AND ORIENTED. STUMP SOCK PLACED TO L AKA SITE. DRESSING TO R FOOT CHANGED THIS AM. VSS. WILL MONITOR UNTIL REPORT TO NOC RN.
--- NOTE | 2021-08-08 08:59 | NUR ---
ATTEMPTED TO EDUCAE PATIENT ON IMPORTANCE OF BEING NPO PRIOR TO POSSIBLE VASCULAR SUGERY MULTIPLE TIMES. PATIENT REFUSED TO LISTEN AND WOULD TALK OVER THIS NURSE WELL THE CHARGE NURSE. HE WAS GIVEN HIS BREAKFAST TRAY SINCE HE KEEPS REPEATING "I DON'T WANT ANY TYPE OF SURGERY. I WANT TO LEAVE WITH [facility]ITY AND WILL SIGN ANY PAPERS TO LEAVE." PT STATED HE WANTED TO TALK TO A DOCTOR. THIS NURSE CALLED DR. FLORIAN TO SEE IF SHE COULD COME DOWN AND TALK TO HIM. DR. FLORIAN REPORTS TO CALL DR. COTTON TO SEE IF HE WILL SEE HIM OUTPATIENT. THIS NURSE HAS TRIED CALLING DR. COTTON TWICE AND HE HAS NOT CALLED BACK. THIS NURSE CALLED THE SON AND REPORTED TO HIM THAT WE WOULD LOVE TO TAKE CARE OF HIM IF HE WOULD ACCEPT THE CARE. HOWEVER, THE PATIENT CONTINUES TO REFUSE THE MEDICAL CARE. THE SON RESPONDED BACK SAYING "I'M WORKING FAST I CAN TO FIGURE OUT HOW TO GET HIM HOME AND SITUATED. I WILL COME IN SOON POSSIBLE". THE PATIENT IS NOW ASKING TO SEE AND TALK WITH DR. CADE. CALLED DR. CADE AND HE SAID HE WILL COME IN WITHIN THE HOUR TO CHANGE THE PATIENTS DRESSING AND TALK WITH HIM.
--- NOTE | 2021-08-08 10:19 | NUR ---
PATIENT REPORTS WANTING THIS NURSE TO CALL HIS SON LEON TO BRING HIM CLOTHES AND HIS POWER WHEELCHAIR. SON REPORTS THAT HE WILL BRING BOTH TO HIM SOON POSSIBLE. PATIENT IS LAYING IN BED. CALL LIGHT WITHIN REACH.
--- NOTE | 2021-08-08 11:09 | NUR ---
THIS NURSE CALLED DR. FLORIAN REPORTING THAT DR. COTTON STILL HASN'T CALLED BACK AND THAT FROM THE [facility] THAT THIS PATIENT WASN'T EVEN ON THE LIST OF SURGERIES TODAY. THE PATIENT IS AWAITING TO SPEAK TO A DOCTOR BEFORE LEAVING. IS AT BEDSIDE WITH PATIENTS MOTORIZED WHEELCHAIR AND CLOTHING. CALL LIGHT WITHIN REACH.
--- NOTE | 2021-08-08 11:58 | NUR ---
DR. FLORIAN CAME AND TALKED TO THE PATIENT ABOUT HIS OPTIONS. PATIENT VERBALIZED THAT HE STILL WANTS TO LEAVE. IV WAS TAKEN OUT AND WAS WNL. PATIENT WAS EDUCATED ON RISKS OF LEAVING AMA. PATIENT VERBALIZED "I HAVE ALREADY SET UP AN APPOINTMENT WITH THE [facility] DOCTOR AND A [facility] OPERATOR." PATIENTS WAS IN ROOM WITH ELECTRIC WHEELCHAIR. HE TRANSFERRED HIMSELF ON THE WHEELCHAIR. JOSE WAS TAKEN OUT AND HE WAS EDUCATED ON RISKS WITH THAT. PATIENT WHEELCHAIRED HIMSELF OUT WITH . AMA PAPERS HAVE BEEN SIGNED AND ARE IN CHART.
--- NOTE | 2021-08-08 13:37 | NUR ---
PATIENTS DISCHARGE MED REC WAS COMPLETED AFTER PATIENT LEFT AGAINST MEDICAL ADVICE.
--- NOTE | 2021-08-08 17:50 | NUR ---
THE PATIENT'S CAME BACK AT AROUND 1415 TO GEOGRAPHY INSTRUCTOR HIS HARD PERSCRIPTION FOR PAIN MEDICATION. THIS NURSE ALSO FAXED THE REST OF THE PERSCRIPTIONS OVER TO THE [facility] AT 1430 TODAY. GOT THE CONFIRMATION THAT THE FAX OF PERSCRIPTIONS FOR THE PATIENT WERE SENT TO THAT [facility].
== END 2021-08-08 12:07 | disposition left against medical advice (07) | DRG 853 ==
LOC: ER 11:05 → ICUW 16:38 → SURS 16:38 → PCU 16:38 → ICUW 17:35 → SURS 08-01 22:05
PROVIDERS: Emergency Medicine; Internal Medicine; Internal Medicine Critical Care Medicine; Orthopaedic Surgery; Physician Assistant; ADMIT Internal Medicine
PROC: 3E033XZ Introduction of Vasopressor into Peripheral Vein, Percutaneous Approach (ICD-10-PCS; 2021-07-30)
PROC: 0BH17EZ Insertion of Endotracheal Airway into Trachea, Via Natural or Artificial Opening (ICD-10-PCS; 2021-07-30)
PROC: 5A12012 Performance of Cardiac Output, Single, Manual (ICD-10-PCS; 2021-07-30)
PROC: 0Y6D0Z3 Detachment at Left Upper Leg, Low, Open Approach (ICD-10-PCS; principal; 2021-07-30 16:00)
PROC: 5A1935Z Respiratory Ventilation, Less than 24 Consecutive Hours (ICD-10-PCS; 2021-07-31)
PROC: 047C3DZ Dilation of Right Common Iliac Artery with Intraluminal Device, Percutaneous Approach (ICD-10-PCS; 2021-08-01)
PROC: 04FC3ZZ Fragmentation of Right Common Iliac Artery, Percutaneous Approach (ICD-10-PCS; 2021-08-01)
PROC: 04FK3ZZ Fragmentation of Right Femoral Artery, Percutaneous Approach (ICD-10-PCS; 2021-08-01)
PROC: 04FC3ZZ Fragmentation of Right Common Iliac Artery, Percutaneous Approach (ICD-10-PCS; 2021-08-01)
PROC: 047D3DZ Dilation of Left Common Iliac Artery with Intraluminal Device, Percutaneous Approach (ICD-10-PCS; 2021-08-01)
DX: A41.89 Other specified sepsis (principal); M72.6 Necrotizing fasciitis; J96.01 Acute respiratory failure with hypoxia; R65.21 Severe sepsis with septic shock; I46.9 Cardiac arrest, cause unspecified; E11.52 Type 2 diabetes mellitus with diabetic peripheral angiopathy with gangrene; I96 Gangrene, not elsewhere classified; E87.1 Hypo-osmolality and hyponatremia; L97.829 Non-pressure chronic ulcer of other part of left lower leg with unspecified severity; Z20.822 Contact with and (suspected) exposure to COVID-19; B96.6 Bacteroides fragilis [B. fragilis] as the cause of diseases classified elsewhere; E11.622 Type 2 diabetes mellitus with other skin ulcer; R07.9 Chest pain, unspecified; R41.0 Disorientation, unspecified; I70.222 Atherosclerosis of native arteries of extremities with rest pain, left leg; Z78.1 Physical restraint status; D63.8 Anemia in other chronic diseases classified elsewhere; E88.09 Other disorders of plasma-protein metabolism, not elsewhere classified; F51.5 Nightmare disorder; K21.9 Gastro-esophageal reflux disease without esophagitis; F43.10 Post-traumatic stress disorder, unspecified; Z28.21 Immunization not carried out because of patient refusal; M62.830 Muscle spasm of back; E78.5 Hyperlipidemia, unspecified; I25.10 Atherosclerotic heart disease of native coronary artery without angina pectoris; Z79.82 Long term (current) use of aspirin; Z79.4 Long term (current) use of insulin; Z79.899 Other long term (current) drug therapy; Z79.02 Long term (current) use of antithrombotics/antiplatelets; Z95.1 Presence of aortocoronary bypass graft; Z86.73 Personal history of transient ischemic attack (TIA), and cerebral infarction without residual deficits
CPT/HCPCS: 0241U; 31500; 36140; 36415; 37221; 71045; 71260; 73552; 73620; 73700; 73701; 75625; 75716; 76937; 80048; 80053; 81001; 82947; 83605; 83735; 83880; 84484; 85025; 85027; 85347; 85379; 85610; 85651; 85730; 86141; 87040; 88307; 88311; 93005; 93010; 93306; 93925; 94002; 94003; 94640; 94667; 94668; 94760; 96365; 96366; 96367; 96368; 96375; 99152; 99153; 99285-25; A9270; C1725; C1751; C1760; C1769; C1876; C1887; C1894; C9113; C9764; C9765; J1100; J1170; J1644; J1815; J1940; J2250; J2270; J2370; J2405; J2543; J2704; J3010; J3370; J7030; J7040; J7050; J7060; J7121; Q9967

== ENCOUNTER 2021-08-26 13:40 | Emergency (ER) | payer MEDICARE, OTHER ==
[~2021-08-26] VITALS: Ht 180.3 cm; Wt 117.9 kg
[~2021-08-26 13:40] MED LIST changes: +AMOX-CLAV 875-1 EAC5 PO; +DOCU100 PO; +FAMO40 PO; +FURO40 PO; +HYDROCODONE-AC1 EAC7 PO; +JARDIANCE25 MG PO; +LEVEMIR FL100 UNIT/2 SC; +LOSA50 PO; +METO25 PO; +NOVOLOG FL100 UNIT/3 SC; +PANTOPRAZOLE SO PO; +PLAVIX75 MG PO; +TAMS.4ER PO; +THERA-D2000 UNIT PO
[2021-08-27] MEDS ORDERED: AMOX-CLAV 875-1 EAC5 PO (14:23)
[2021-08-27] MEDS ORDERED: HYDROCODONE-AC1 EAC7 PO (14:23)
== END 2021-08-26 15:34 | disposition left against medical advice (07) ==
LOC: ER 13:40
DX: Z53.21 Procedure and treatment not carried out due to patient leaving prior to being seen by health care provider (principal)

== ENCOUNTER 2021-08-27 07:26 | Emergency (ER) | payer MEDICARE, OTHER ==
[~2021-08-27] VITALS: Ht 182.9 cm; Wt 121.6 kg
[2021-08-27 09:03] LABS: BASOPHILS ABSOLUTE AUTO 0.04 K/mm3 (0.00-0.23); BASOPHILS PERCENT AUTO 1 % (0-2); EOSINOPHILS ABSOLUTE AUTO 0.06 K/mm3 (0.00-0.68); EOSINOPHILS PERCENT AUTO 1 % (0-6); Hemoglobin 11.1 g/dL (13.5-17.5); IMMATURE GRAN ABSOLUTE AUTO 0.03 K/mm3 (0.00-0.10); IMMATURE GRAN PERCENT AUTO 0 % (0-1); LYMPHOCYTES ABSOLUTE AUTO 1.13 K/mm3 (0.84-5.20); LYMPHOCYTES PERCENT AUTO 16 % (21-46); MONOCYTES ABSOLUTE AUTO 0.67 K/mm3 (0.16-1.47); MONOCYTES PERCENT AUTO 9 % (4-13); Mean Corpuscular HGB 29.9 pg (26.0-34.0); Mean Corpuscular Volume 100 fL (80-100); Mean Platelet Volume 10.1 fL (9.1-12.4); NEUTROPHILS PERCENT AUTO 73 % (41-73); Platelet Count 215 K/mm3 (150-400); RDW Coefficient Variation 18.3 % (11.7-14.2); RDW Standard Deviation 65.6 fL (35.1-46.3); Red Blood Cell Count 3.71 M/mm3 (4.30-5.90); White Blood Cell Count 7.13 K/mm3 (4.00-11.30)
[2021-08-27 09:24] LABS: Alanine Aminotransfer (ALT/SGP 16 U/L (12-78); Albumin, Blood 2.2 g/dL (3.4-5.0); Albumin/Globulin Ratio 0.6 (0.8-1.8); Alk Phos 122 U/L (50-136); Anion Gap 7 mmol/L (6-16); Aspartate Aminotrans (AST/SGOT 14 U/L (12-37); Bilirubin, Total 0.6 mg/dL (0.1-1.0); Blood Urea Nitrogen 17 mg/dL (8-24); Bun/Creatinine Ratio 36.4 (12.0-20.0); CO2, Blood 27 mmol/L (21-32); Calcium, Blood 8.6 mg/dL (8.5-10.1); Chloride, Blood 107 mmol/L (98-108); Creatinine, Blood 0.47 mg/dL (0.60-1.20); Glomerular Filtration Rate >60 (60-); Glucose, Blood 132 mg/dL (70-99); Potassium, Blood 4.3 mmol/L (3.5-5.5); Sodium, Blood 141 mmol/L (136-145); Total Protein, Blood 6.2 g/dL (6.4-8.2)
[2021-08-27 12:14] LABS: Base Excess Venous 6.6 mmol/L; Bicarbonate Venous 28.1 mmol/L (24.0-30.0); PCO2 Venous 61.1 mmHg (38-42); PO2 Venous 38.4 mmHg (38-42); pH Blood Venous 7.33 (7.34-7.37)
--- NOTE | 2021-08-27 13:37 | NUR ---
Met with pt in ER exam room after meeting with bedside ER nurse. Pt had an emergency L BKA approximately one month ago due to severe wounds and PVD on L foot. The pt did leave AMA after after surgery. He currently lives in a motor home with his , and they are currently in the process of buying a home. Pt presents today via ambulance after falling out of bed this am and was unable to assist him back to bed. Pt's states he has gotten weaker and "heavier" since returning from the L BKA hospitalization. So she called an ambulance and he was brought to the ED this am. However, after arriving, the pt became beligerent, refusing care, raising his voice and throwing his water cup at his . Upon arrival, I first met with pt in his room. He was noticeably short of breath, and unable to complete sentences due to SOB. Note he also has blackened tips of all R foot toes. He tells me he fell out of bed, states he's fine, and "wants to go home". He states the hospital is causing problems between him and his by telling the pt he should stay, when he doesn't want to. I then spoke to pt's in the lobby. She tells me about the house purchase, the problems they are currently having with pt's mobility in the motor home. She states they are having to call for fire dept assistance daily to help pt either reposition or return to bed. She realizes this is no longer going to be a workable solution, but pt has not. Pt continues to demand he be released home, and continues to have the right to refuse treatment unfortunately. Spoke to BENITA Man who placed the referral. She was hopeful for a solution for this pt today; however this is unlikely, as Palliative care at the [facility] is not available on the weekend. Plan to call DARNE[facility] Albarran on sunday morning to see what help is available for the patient. For now, he will discharge home as he requests. His manages his pills, and reports she overlooked his "waterpills" but will restart them today. Hopeful that pt will be able to get through the weekend successfully, then receive some [facility].
[2021-08-27] MEDS ORDERED: AMOX-CLAV 875-1 EAC5 PO (14:23)
[2021-08-27] MEDS ORDERED: HYDROCODONE-AC1 EAC7 PO (14:23)
== END 2021-08-27 15:05 | disposition home or self-care (01) ==
LOC: ER 07:26
PROVIDERS: Physician Assistant
DX: S09.90XA Unspecified injury of head, initial encounter (principal); I50.9 Heart failure, unspecified; E11.9 Type 2 diabetes mellitus without complications; Z88.0 Allergy status to penicillin; Z79.899 Other long term (current) drug therapy; Z79.891 Long term (current) use of opiate analgesic; Z79.82 Long term (current) use of aspirin; W18.30XA Fall on same level, unspecified, initial encounter
CPT/HCPCS: 36415; 70450; 71045; 73502; 80053; 82803; 83605; 83880; 85025; 93005; 93010; 96374; 96375; 99285-25; J1170; J1940; J3010

== ENCOUNTER 2021-08-29 22:42 | Inpatient (IN) | payer OTHER, MEDICARE ==
[~2021-08-29] VITALS: Ht 182.9 cm; Wt 127.0 kg
[2021-08-30 00:45] LABS: BASOPHILS ABSOLUTE AUTO 0.04 K/mm3 (0.00-0.23); BASOPHILS PERCENT AUTO 1 % (0-2); EOSINOPHILS ABSOLUTE AUTO 0.03 K/mm3 (0.00-0.68); EOSINOPHILS PERCENT AUTO 0 % (0-6); Hematocrit 38.7 % (37.0-53.0); Hemoglobin 11.8 g/dL (13.5-17.5); IMMATURE GRAN PERCENT AUTO 1 % (0-1); LYMPHOCYTES ABSOLUTE AUTO 0.87 K/mm3 (0.84-5.20); LYMPHOCYTES PERCENT AUTO 10 % (21-46); MONOCYTES ABSOLUTE AUTO 0.89 K/mm3 (0.16-1.47); MONOCYTES PERCENT AUTO 10 % (4-13); Mean Corpuscular HGB 30.3 pg (26.0-34.0); Mean Corpuscular HGB Conc 30.5 g/dL (31.5-36.5); Mean Corpuscular Volume 99 fL (80-100); NEUTROPHILS ABSOLUTE AUTO 6.59 K/mm3 (1.96-9.15); NEUTROPHILS PERCENT AUTO 77 % (41-73); RDW Coefficient Variation 18.6 % (11.7-14.2); RDW Standard Deviation 67.5 fL (35.1-46.3); White Blood Cell Count 8.52 K/mm3 (4.00-11.30)
[2021-08-30 00:49] LABS: Mean Platelet Volume 10.4 fL (9.1-12.4); Platelet Count 212 K/mm3 (150-400)
[2021-08-30 01:16] LABS: Alanine Aminotransfer (ALT/SGP 19 U/L (12-78); Albumin, Blood 2.3 g/dL (3.4-5.0); Albumin/Globulin Ratio 0.5 (0.8-1.8); Alk Phos 119 U/L (50-136); Anion Gap 9 mmol/L (6-16); Aspartate Aminotrans (AST/SGOT 18 U/L (12-37); Bilirubin, Total 0.6 mg/dL (0.1-1.0); Blood Urea Nitrogen 16 mg/dL (8-24); Bun/Creatinine Ratio 29.3 (12.0-20.0); CO2, Blood 29 mmol/L (21-32); CPK Creatine Kinase 67 U/L (39-308); Calcium, Blood 9.2 mg/dL (8.5-10.1); Chloride, Blood 104 mmol/L (98-108); Creatinine, Blood 0.55 mg/dL (0.60-1.20); Globulin, Blood 4.6 g/dL (2.2-4.0); Glomerular Filtration Rate >60 (60-); Glucose, Blood 134 mg/dL (70-99); Potassium, Blood 4.2 mmol/L (3.5-5.5); Sodium, Blood 142 mmol/L (136-145); Total Protein, Blood 6.9 g/dL (6.4-8.2); Troponin I <0.015 ng/mL (0.000-0.040)
[2021-08-30 01:21] LABS: Influenza A, PCR NEGATIVE (NEGATIVE); Influenza B, PCR NEGATIVE (NEGATIVE); Resp Syncytial Virus, PCR NEGATIVE (NEGATIVE); SARS-Cov-2 (COVID-19) PCR, MMC NEGATIVE (NEGATIVE)
[2021-08-30 05:38] LABS: BASOPHILS ABSOLUTE AUTO 0.04 K/mm3 (0.00-0.23); BASOPHILS PERCENT AUTO 1 % (0-2); EOSINOPHILS ABSOLUTE AUTO 0.03 K/mm3 (0.00-0.68); EOSINOPHILS PERCENT AUTO 1 % (0-6); Hematocrit 36.6 % (37.0-53.0); Hemoglobin 11.4 g/dL (13.5-17.5); IMMATURE GRAN ABSOLUTE AUTO 0.03 K/mm3 (0.00-0.10); IMMATURE GRAN PERCENT AUTO 1 % (0-1); LYMPHOCYTES ABSOLUTE AUTO 1.08 K/mm3 (0.84-5.20); LYMPHOCYTES PERCENT AUTO 16 % (21-46); MONOCYTES ABSOLUTE AUTO 0.63 K/mm3 (0.16-1.47); MONOCYTES PERCENT AUTO 10 % (4-13); Mean Corpuscular HGB 30.6 pg (26.0-34.0); Mean Corpuscular HGB Conc 31.1 g/dL (31.5-36.5); Mean Corpuscular Volume 98 fL (80-100); Mean Platelet Volume 9.9 fL (9.1-12.4); NEUTROPHILS ABSOLUTE AUTO 4.78 K/mm3 (1.96-9.15); NEUTROPHILS PERCENT AUTO 72 % (41-73); Platelet Count 239 K/mm3 (150-400); RDW Coefficient Variation 18.5 % (11.7-14.2); RDW Standard Deviation 66.4 fL (35.1-46.3); Red Blood Cell Count 3.72 M/mm3 (4.30-5.90); White Blood Cell Count 6.59 K/mm3 (4.00-11.30)
[2021-08-30 06:17] LABS: Alanine Aminotransfer (ALT/SGP 18 U/L (12-78); Albumin, Blood 2.6 g/dL (3.4-5.0); Albumin/Globulin Ratio 0.6 (0.8-1.8); Alk Phos 115 U/L (50-136); Anion Gap 7 mmol/L (6-16); Aspartate Aminotrans (AST/SGOT 13 U/L (12-37); Bilirubin, Total 0.9 mg/dL (0.1-1.0); Blood Urea Nitrogen 14 mg/dL (8-24); Bun/Creatinine Ratio 24.3 (12.0-20.0); CO2, Blood 33 mmol/L (21-32); Calcium, Blood 9.1 mg/dL (8.5-10.1); Chloride, Blood 103 mmol/L (98-108); Creatinine, Blood 0.58 mg/dL (0.60-1.20); Globulin, Blood 4.5 g/dL (2.2-4.0); Glomerular Filtration Rate >60 (60-); Glucose, Blood 127 mg/dL (70-99); Potassium, Blood 3.4 mmol/L (3.5-5.5); Sodium, Blood 143 mmol/L (136-145); Total Protein, Blood 7.1 g/dL (6.4-8.2)
[2021-08-30] MEDS ORDERED: Lasix40 MG PO (15:34)
[2021-08-30] MEDS ORDERED: K-TAB ER20 ME2 PO (15:35)
[2021-08-30] MEDS ORDERED: NOVOLOG FL100 UNIT/3 SC (15:36)
--- NOTE | 2021-08-30 16:29 | NUR ---
Met with family in ER to review hospice plan. struggling with son acceptance and hers she feels he is not dying and they are buying a home and she wants him to be able to be in the home. Gently reviewed with her some of his changes. Advised her he is not eminently dying. Stated in past he has made it clear many times as he declines he does not want to be in hospital. tearful that he spent [facility] two years in hospital and fears hospitals. [facility] will give him quality time and he may live longer with good symptom control. Pt agreed with hospice and updated the son on plan of care. Goal is placement until the house is set up and initiate hospice team. hospitalist notified and care manger notifie.
[2021-08-30] MEDS ORDERED: CEPH500 PO (17:50)
[2021-08-30] MEDS ORDERED: SULTRIDS PO (17:54)
[2021-08-30] MEDS ORDERED: Vitamin D1000 UNI1 PO (17:54)
[2021-08-30] MEDS ORDERED: VISBIOME 112.51 EACH PO (17:54)
--- NOTE | 2021-08-31 03:58 | NUR ---
PATIENT AT 0245. SPOUSE WAS NOTIFIED. ATTEMPTED TO NOTIFY SON BUT THERE WAS NO ANSWER.
== END 2021-08-31 02:45 | DRG 862 ==
LOC: ER 22:42 → ERHOLD 08-30 00:35 → MEDS 08-30 18:47
PROVIDERS: Student in an Organized Health Care Education/Training Program; ADMIT Internal Medicine
DX: T81.41XA Infection following a procedure, superficial incisional surgical site, initial encounter (principal); I50.23 Acute on chronic systolic (congestive) heart failure; L02.416 Cutaneous abscess of left lower limb; Z51.5 Encounter for palliative care; I25.10 Atherosclerotic heart disease of native coronary artery without angina pectoris; F17.210 Nicotine dependence, cigarettes, uncomplicated; Z20.822 Contact with and (suspected) exposure to COVID-19; I27.20 Pulmonary hypertension, unspecified; Z66 Do not resuscitate; E11.621 Type 2 diabetes mellitus with foot ulcer; T87.81 Dehiscence of amputation stump; E11.51 Type 2 diabetes mellitus with diabetic peripheral angiopathy without gangrene; F41.9 Anxiety disorder, unspecified; E11.42 Type 2 diabetes mellitus with diabetic polyneuropathy; Y83.8 Other surgical procedures as the cause of abnormal reaction of the patient, or of later complication, without mention of misadventure at the time of the procedure; L97.512 Non-pressure chronic ulcer of other part of right foot with fat layer exposed; E66.9 Obesity, unspecified; Z68.38 Body mass index [BMI] 38.0-38.9, adult; Z95.1 Presence of aortocoronary bypass graft; Z88.0 Allergy status to penicillin; Z88.8 Allergy status to other drugs, medicaments and biological substances; Z91.14 Patient's other noncompliance with medication regimen
CPT/HCPCS: 0241U; 36415; 51702; 71045; 80053; 82550; 83880; 84484; 85025; 93005; 93010; 94760; 96365; 96366; 96367; 96368; 96375; 96376; 99285-25; A9270; J0692; J1650; J1940; J2405; J3370; J7050; P9046